=== PATIENT | female | born 1960 | race African-American/Black ===

== ENCOUNTER 2016-11-09 01:35 | Emergency (ER) | payer MEDICARE ==
[2016-07-01 16:49] VITALS: BMI 51.0
[~2016-11-09 01:35] MED LIST: CARAFATE1 G/10 ML PO; COREG25 MG PO; COZAAR100 MG PO; CYMBALTA60 MG PO; Chloraseptic Spray [ TOPICAL; ISOSORBIDE DINI30 MG PO; KLONOPIN1 MG PO; LANTUS SOL100 UNIT/1 SC; LASIX80 MG PO; NEXIUM40 MG PO; NORVASC10 MG PO; NOVOLOG100 U/M1 SQ; NYSTATIN ORAL SU5 ML PO; PERCOCET 10/3251 TA1 PO; REGLAN10 MG PO; RYTHMOL225 MG PO
== END 2016-11-09 03:50 | disposition home or self-care (01) ==
LOC: D.ER 01:35
DX: R42 Dizziness and giddiness (principal); R51 Headache; E66.09 Other obesity due to excess calories; E10.9 Type 1 diabetes mellitus without complications; Z79.4 Long term (current) use of insulin; M54.9 Dorsalgia, unspecified

== ENCOUNTER 2016-12-28 16:47 | Emergency (ER) | payer MEDICARE ==
[2016-07-01 16:49] VITALS: BMI 51.0
[2016-12-28 17:44] LABS: ALBUMIN 3.1 g/dL (3.4-5.0); ALKALINE PHOSPHATASE 116 U/L (46-116); ALT (SGPT) 22 U/L (10-68); BILIRUBIN - TOTAL 0.24 mg/dL (0.2-1.3); CALC OSMOLALITY 286 mosm/kg (275-300); CALCIUM 8.7 mg/dL (8.5-10.1); CARBON DIOXIDE 33.5 mmol/L (21.0-32.0); CHLORIDE - SERUM 105 mmol/L (98-107); CREATININE - SERUM 0.7 mg/dL (0.6-1.3); GLUCOSE 176 mg/dL (74-106); POTASSIUM - SERUM 3.4 mmol/L (3.5-5.1); PROTEIN - SERUM 7.1 g/dL (6.4-8.2); SODIUM 143 mmol/L (136-145); UREA NITROGEN 8 mg/dL (7-18); eGFR NON AFRICAN AMERICAN > 90 mL/min (90-120)
[2016-12-28 18:33] LABS: MAGNESIUM - SERUM 1.9 mg/dL (1.8-2.4); THYROID STIMULATING HORMONE 0.65 uIU/mL (0.36-3.74)
== END 2016-12-28 19:01 | disposition home or self-care (01) ==
LOC: D.ER 16:47
PROVIDERS: Emergency Medicine
DX: R60.9 Edema, unspecified (principal); I10 Essential (primary) hypertension; F17.200 Nicotine dependence, unspecified, uncomplicated; E11.9 Type 2 diabetes mellitus without complications; Z79.4 Long term (current) use of insulin

== ENCOUNTER 2017-01-02 03:28 | Emergency (ER) | payer MEDICARE ==
[2016-07-01 16:49] VITALS: BMI 51.0
[2017-01-02 04:08] LABS: APPEARANCE HAZY (CLEAR); BILIRUBIN NEGATIVE (NEGATIVE); COLOR U (YELLOW); GLUCOSE 500 mg/dL (NEGATIVE); KETONE NEGATIVE (NEGATIVE); LEUKOCYTE ESTERASE NEGATIVE (NEGATIVE); NITRITE NEGATIVE (NEGATIVE); PROTEIN NEGATIVE (NEGATIVE); SPECIFIC GRAVITY 1.025 (1.005-1.020); UROBILINOGEN NORMAL (NORMAL)
[2017-01-02 04:36] LABS: BASOPHILS 0.3 % (0.0-2.0); EOSINOPHILS 3.8 % (0-7); HEMATOCRIT 38.7 % (36.0-48.0); HEMOGLOBIN 13.2 g/dL (12-16); IMMATURE GRANULOCYTES 0.8 % (0-5); LYMPHOCYTES 40.3 % (15-50); MCH 26.9 pg (26.0-34.0); MCHC 34.1 g/dL (31.0-37.0); MEAN PLATELET VOLUME 9.8 fL (7.4-10.4); MONOCYTES 6.4 % (2-11); NEUTROPHILS 48.4 % (40-80); PLATELET COUNT 162 10x3/uL (130-400); RDW 14.2 % (11.5-14.5); WBC 6.6 10x3/uL (4.8-10.8)
[2017-01-02 04:46] LABS: CALC OSMOLALITY 281 mosm/kg (275-300); CARBON DIOXIDE 31.6 mmol/L (21.0-32.0); CHLORIDE - SERUM 106 mmol/L (98-107); CREATININE - SERUM 0.8 mg/dL (0.6-1.3); GLUCOSE 132 mg/dL (74-106); POTASSIUM - SERUM 3.7 mmol/L (3.5-5.1); SODIUM 141 mmol/L (136-145); UREA NITROGEN 10 mg/dL (7-18); eGFR NON AFRICAN AMERICAN 78 mL/min (90-120)
== END 2017-01-02 05:22 | disposition home or self-care (01) ==
LOC: D.ER 03:28
PROVIDERS: Emergency Medicine
DX: R60.9 Edema, unspecified (principal); M54.5 Low back pain; E11.9 Type 2 diabetes mellitus without complications; Z79.4 Long term (current) use of insulin; F17.200 Nicotine dependence, unspecified, uncomplicated

== ENCOUNTER 2017-03-11 15:31 | Emergency (ER) | payer MEDICARE ==
[2016-07-01 16:49] VITALS: BMI 51.0
[2017-03-11 16:32] LABS: BASOPHILS 0.3 % (0-2); EOSINOPHILS 3.4 % (0-7); HEMATOCRIT 40.4 % (36.0-48.0); HEMOGLOBIN 14.1 g/dL (12-16); IMMATURE GRANULOCYTES 0.3 % (0-5); LYMPHOCYTES 42.5 % (15-50); MCH 28.1 pg (26.0-34.0); MCHC 34.9 g/dL (31.0-37.0); MCV 80.5 fL (80.0-100.0); MEAN PLATELET VOLUME 10.4 fL (7.4-10.4); MONOCYTES 5.8 % (2-11); NEUTROPHILS 47.7 % (40-80); PLATELET COUNT 197 10x3/uL (130-400); RBC 5.02 10x6/uL (4.00-5.40); RDW 14.2 % (11.5-14.5); WBC 7.4 10x3/uL (4.8-10.8)
[2017-03-11 17:01] LABS: COLOR YELLOW (YELLOW)
[2017-03-11 17:02] LABS: APPEARANCE CLEAR (CLEAR); BILIRUBIN NEGATIVE (NEGATIVE); GLUCOSE NEGATIVE (NEGATIVE); KETONE NEGATIVE (NEGATIVE); NITRITE NEGATIVE (NEGATIVE); PROTEIN NEGATIVE (NEGATIVE); UROBILINOGEN NORMAL (NORMAL)
[2017-03-11 17:13] LABS: BACTERIA FEW /hpf (NONE SEEN); LEUKOCYTE ESTERASE TRACE (NEGATIVE); RED CELLS - URINE OCC /hpf (0-5); WHITE CELLS - URINE 0-5 /hpf (0-5)
[2017-03-11 17:17] LABS: ALBUMIN 3.3 g/dL (3.4-5.0); ANION GAP 6.6 mmol/L (8-16); BILIRUBIN - TOTAL 0.21 mg/dL (0.2-1.3); CALCIUM 9.9 mg/dL (8.5-10.1); CARBON DIOXIDE 35.8 mmol/L (21.0-32.0); CREATININE - SERUM 0.9 mg/dL (0.6-1.3); POTASSIUM - SERUM 3.4 mmol/L (3.5-5.1); PROTEIN - SERUM 7.4 g/dL (6.4-8.2)
[2017-03-11 19:34] LABS: MAGNESIUM - SERUM 1.6 mg/dL (1.8-2.4)
[2017-03-11 20:36] LABS: HEMOGLOBIN A1C 8.3 % (4.8-6.0)
== END 2017-03-11 20:15 | disposition home or self-care (01) ==
LOC: D.ER 15:31
PROVIDERS: Emergency Medicine; Physician Assistant
DX: R07.9 Chest pain, unspecified (principal); E11.9 Type 2 diabetes mellitus without complications; Z79.4 Long term (current) use of insulin; J42 Unspecified chronic bronchitis; E83.42 Hypomagnesemia; E87.6 Hypokalemia; E66.09 Other obesity due to excess calories; F17.200 Nicotine dependence, unspecified, uncomplicated; Z95.0 Presence of cardiac pacemaker

== ENCOUNTER 2017-06-20 09:57 | Emergency (ER) | payer MEDICARE ==
[2016-07-01 16:49] VITALS: BMI 51.0
[2017-06-20 10:53] LABS: BASOPHILS 0.1 % (0-2); EOSINOPHILS 2.7 % (0-7); HEMATOCRIT 38.3 % (36.0-48.0); HEMOGLOBIN 13.2 g/dL (12-16); IMMATURE GRANULOCYTES 0.5 % (0-5); MCH 27.8 pg (26.0-34.0); MCHC 34.5 g/dL (31.0-37.0); MCV 80.6 fL (80.0-100.0); MEAN PLATELET VOLUME 9.9 fL (7.4-10.4); MONOCYTES 3.7 % (2-11); PLATELET COUNT 234 10x3/uL (130-400); RBC 4.75 10x6/uL (4.00-5.40); RDW 14.2 % (11.5-14.5); WBC 7.9 10x3/uL (4.8-10.8)
[2017-06-20 11:14] LABS: ALBUMIN 3.1 g/dL (3.4-5.0); ANION GAP 6.7 mmol/L (8-16); BILIRUBIN - TOTAL 0.27 mg/dL (0.2-1.3); CALCIUM 9.3 mg/dL (8.5-10.1); PROTEIN - SERUM 7.8 g/dL (6.4-8.2)
[2017-06-20 11:19] LABS: POTASSIUM - SERUM 2.7 mmol/L (3.5-5.1)
== END 2017-06-20 14:44 | disposition home or self-care (01) ==
LOC: D.ER 09:57
PROVIDERS: Emergency Medicine; Nurse Practitioner Family
DX: T38.3X1A Poisoning by insulin and oral hypoglycemic [antidiabetic] drugs, accidental (unintentional), initial encounter (principal); Y92.019 Unspecified place in single-family (private) house as the place of occurrence of the external cause; E11.9 Type 2 diabetes mellitus without complications; Z79.4 Long term (current) use of insulin

== ENCOUNTER 2017-09-20 12:22 | Emergency (ER) | payer MEDICARE ==
[2016-07-01 16:49] VITALS: BMI 51.0
[2017-09-20 13:02] LABS: BASOPHILS 0.1 % (0-2); EOSINOPHILS 3.5 % (0-7); HEMATOCRIT 38.2 % (36.0-48.0); HEMOGLOBIN 13.2 g/dL (12-16); IMMATURE GRANULOCYTES 0.3 % (0-5); LYMPHOCYTES 37.8 % (15-50); MCH 27.4 pg (26.0-34.0); MCHC 34.6 g/dL (31.0-37.0); MCV 79.3 fL (80.0-100.0); MEAN PLATELET VOLUME 9.8 fL (7.4-10.4); MONOCYTES 6.1 % (2-11); NEUTROPHILS 52.2 % (40-80); PLATELET COUNT 200 10x3/uL (130-400); RBC 4.82 10x6/uL (4.00-5.40); RDW 14.5 % (11.5-14.5); WBC 6.9 10x3/uL (4.8-10.8)
[2017-09-20 13:17] LABS: AMYLASE - SERUM 29 U/L (25-115); LIPASE 110 U/L (73-393)
[2017-09-20 13:19] LABS: ALBUMIN 3.1 g/dL (3.4-5.0); ALKALINE PHOSPHATASE 106 U/L (46-116); ALT (SGPT) 20 U/L (10-68); BILIRUBIN - TOTAL 0.27 mg/dL (0.2-1.3); CALC OSMOLALITY 282 mosm/kg (275-300); CALCIUM 9.2 mg/dL (8.5-10.1); CARBON DIOXIDE 30.7 mmol/L (21.0-32.0); CHLORIDE - SERUM 102 mmol/L (98-107); CREATININE - SERUM 0.8 mg/dL (0.6-1.3); GLUCOSE 148 mg/dL (74-106); POTASSIUM - SERUM 3.1 mmol/L (3.5-5.1); PROTEIN - SERUM 7.4 g/dL (6.4-8.2); SODIUM 140 mmol/L (136-145); UREA NITROGEN 14 mg/dL (7-18); eGFR NON AFRICAN AMERICAN 78 mL/min (90-120)
== END 2017-09-20 16:26 | disposition home or self-care (01) ==
LOC: D.ER 12:22
PROVIDERS: Family Medicine
DX: R10.9 Unspecified abdominal pain (principal); E87.6 Hypokalemia; E11.9 Type 2 diabetes mellitus without complications; Z79.4 Long term (current) use of insulin

== ENCOUNTER 2017-11-24 00:02 | Emergency (ER) | payer MEDICARE ==
[2016-07-01 16:49] VITALS: BMI 51.0
[2017-11-24 00:41] LABS: APPEARANCE CLEAR (CLEAR); BILIRUBIN NEGATIVE (NEGATIVE); COLOR YELLOW (YELLOW); GLUCOSE NEGATIVE (NEGATIVE); KETONE NEGATIVE (NEGATIVE); NITRITE NEGATIVE (NEGATIVE); PROTEIN NEGATIVE (NEGATIVE); RED CELLS - URINE 0-5 /hpf (0-5); SPECIFIC GRAVITY 1.015 (1.005-1.020); UROBILINOGEN NORMAL (NORMAL); WHITE CELLS - URINE 0-5 /hpf (0-5)
== END 2017-11-24 00:55 | disposition home or self-care (01) ==
LOC: D.ER 00:02
PROVIDERS: Physician Assistant Medical
DX: R10.9 Unspecified abdominal pain (principal); I10 Essential (primary) hypertension; I50.9 Heart failure, unspecified; E11.9 Type 2 diabetes mellitus without complications; Z95.0 Presence of cardiac pacemaker; F17.200 Nicotine dependence, unspecified, uncomplicated

== ENCOUNTER 2018-01-18 13:09 | Emergency (ER) | payer MEDICARE ==
[2016-07-01 16:49] VITALS: BMI 51.0
== END 2018-01-18 14:21 | disposition home or self-care (01) ==
LOC: D.ER 13:09
DX: L20.9 Atopic dermatitis, unspecified (principal); T78.40XA Allergy, unspecified, initial encounter; X58.XXXA Exposure to other specified factors, initial encounter; I50.9 Heart failure, unspecified; E11.9 Type 2 diabetes mellitus without complications; I10 Essential (primary) hypertension

== ENCOUNTER 2018-02-01 13:23 | Emergency (ER) | payer MEDICARE ==
[2016-07-01 16:49] VITALS: BMI 51.0
[2018-02-01 13:47] LABS: BASOPHILS 0.3 % (0-2); EOSINOPHILS 5.5 % (0-7); HEMATOCRIT 39.8 % (36.0-48.0); HEMOGLOBIN 14.1 g/dL (12-16); IMMATURE GRANULOCYTES 0.6 % (0-5); MCHC 35.4 g/dL (31.0-37.0); MEAN PLATELET VOLUME 9.8 fL (7.4-10.4); MONOCYTES 4.9 % (2-11); NEUTROPHILS 58.7 % (40-80); PLATELET COUNT 178 10x3/uL (130-400); RBC 5.04 10x6/uL (4.00-5.40); RDW 14.8 % (11.5-14.5); WBC 6.6 10x3/uL (4.8-10.8)
[2018-02-01 14:00] LABS: ALBUMIN 3.3 g/dL (3.4-5.0); BILIRUBIN - TOTAL 0.32 mg/dL (0.2-1.3); CALCIUM 9.5 mg/dL (8.5-10.1); CARBON DIOXIDE 30.5 mmol/L (21.0-32.0); CREATININE - SERUM 0.9 mg/dL (0.6-1.3); POTASSIUM - SERUM 3.5 mmol/L (3.5-5.1); PROTEIN - SERUM 8.1 g/dL (6.4-8.2)
[2018-02-01 14:51] LABS: APPEARANCE HAZY (CLEAR); BACTERIA MODERATE /hpf (NONE SEEN); BILIRUBIN NEGATIVE (NEGATIVE); COLOR YELLOW (YELLOW); EPITHELIAL CELLS 0-5 /hpf (0-5); GLUCOSE NEGATIVE (NEGATIVE); KETONE NEGATIVE (NEGATIVE); MUCUS <1+ /lpf (NONE SEEN); NITRITE NEGATIVE (NEGATIVE); PROTEIN NEGATIVE (NEGATIVE); RED CELLS - URINE 0-5 /hpf (0-5); SPECIFIC GRAVITY 1.015 (1.005-1.020); UROBILINOGEN NORMAL (NORMAL)
== END 2018-02-01 15:50 | disposition home or self-care (01) ==
LOC: D.ER 13:23
PROVIDERS: Family Medicine
DX: R10.9 Unspecified abdominal pain (principal); N39.0 Urinary tract infection, site not specified; I50.9 Heart failure, unspecified; E11.9 Type 2 diabetes mellitus without complications; I10 Essential (primary) hypertension

== ENCOUNTER 2018-02-09 12:30 | Emergency (ER) | payer MEDICARE ==
[2016-07-01 16:49] VITALS: BMI 51.0
[2018-02-09 13:33] LABS: BASOPHILS 0.3 % (0-2); EOSINOPHILS 6.3 % (0-7); HEMATOCRIT 38.9 % (36.0-48.0); HEMOGLOBIN 13.7 g/dL (12-16); IMMATURE GRANULOCYTES 0.5 % (0-5); LYMPHOCYTES 35.8 % (15-50); MCH 27.8 pg (26.0-34.0); MCHC 35.2 g/dL (31.0-37.0); MCV 79.1 fL (80.0-100.0); MONOCYTES 5.5 % (2-11); NEUTROPHILS 51.6 % (40-80); PLATELET COUNT 197 10x3/uL (130-400); RBC 4.92 10x6/uL (4.00-5.40); RDW 14.6 % (11.5-14.5)
[2018-02-09 13:38] LABS: APPEARANCE CLEAR (CLEAR); BILIRUBIN NEGATIVE (NEGATIVE); COLOR YELLOW (YELLOW); GLUCOSE NEGATIVE (NEGATIVE); KETONE NEGATIVE (NEGATIVE); NITRITE NEGATIVE (NEGATIVE); PROTEIN NEGATIVE (NEGATIVE); UROBILINOGEN NORMAL (NORMAL)
[2018-02-09 13:39] LABS: BACTERIA MODERATE /hpf (NONE SEEN); EPITHELIAL CELLS 0-5 /hpf (0-5); RED CELLS - URINE 0-5 /hpf (0-5); WHITE CELLS - URINE 0-5 /hpf (0-5)
[2018-02-09 14:04] LABS: AMYLASE - SERUM 31 U/L (25-115); LIPASE 85 U/L (73-393)
== END 2018-02-09 15:00 | disposition home or self-care (01) ==
LOC: D.ER 12:30
PROVIDERS: Family Medicine; Nurse Practitioner Family
DX: N39.0 Urinary tract infection, site not specified (principal); I50.9 Heart failure, unspecified; E11.9 Type 2 diabetes mellitus without complications; Z95.0 Presence of cardiac pacemaker

== ENCOUNTER 2018-03-22 11:07 | Emergency (ER) | payer MEDICARE ==
[2016-07-01 16:49] VITALS: BMI 51.0
[2018-03-22 11:53] LABS: APPEARANCE CLEAR (CLEAR); BILIRUBIN NEGATIVE (NEGATIVE); COLOR YELLOW (YELLOW); GLUCOSE NEGATIVE (NEGATIVE); KETONE NEGATIVE (NEGATIVE); NITRITE NEGATIVE (NEGATIVE); PROTEIN NEGATIVE (NEGATIVE); UROBILINOGEN NORMAL (NORMAL)
[2018-03-22 11:54] LABS: BACTERIA FEW /hpf (NONE SEEN); EPITHELIAL CELLS 0-5 /hpf (0-5); RED CELLS - URINE OCC /hpf (0-5); WHITE CELLS - URINE OCC /hpf (0-5)
[2018-03-22 12:14] LABS: BASOPHILS 0.1 % (0-2); HEMOGLOBIN 13.1 g/dL (12-16); IMMATURE GRANULOCYTES 0.6 % (0-5); LYMPHOCYTES 30.9 % (15-50); MCH 28.1 pg (26.0-34.0); MCHC 35.4 g/dL (31.0-37.0); MCV 79.2 fL (80.0-100.0); MEAN PLATELET VOLUME 10.2 fL (7.4-10.4); MONOCYTES 5.4 % (2-11); PLATELET COUNT 180 10x3/uL (130-400); RBC 4.67 10x6/uL (4.00-5.40); RDW 14.9 % (11.5-14.5); WBC 6.8 10x3/uL (4.8-10.8)
[2018-03-22 12:29] LABS: ALKALINE PHOSPHATASE 110 U/L (46-116); ALT (SGPT) 25 U/L (10-68); BILIRUBIN - TOTAL 0.29 mg/dL (0.2-1.3); CALC OSMOLALITY 283 mosm/kg (275-300); CALCIUM 9.2 mg/dL (8.5-10.1); CARBON DIOXIDE 31.3 mmol/L (21.0-32.0); CHLORIDE - SERUM 102 mmol/L (98-107); CREATININE - SERUM 0.8 mg/dL (0.6-1.3); GLUCOSE 149 mg/dL (74-106); POTASSIUM - SERUM 3.4 mmol/L (3.5-5.1); PROTEIN - SERUM 7.5 g/dL (6.4-8.2); SODIUM 140 mmol/L (136-145); UREA NITROGEN 18 mg/dL (7-18); eGFR NON AFRICAN AMERICAN 78 mL/min (90-120)
== END 2018-03-22 13:51 | disposition home or self-care (01) ==
LOC: D.ER 11:07
PROVIDERS: Family Medicine
DX: N39.0 Urinary tract infection, site not specified (principal); R10.9 Unspecified abdominal pain; R10.84 Generalized abdominal pain; R11.2 Nausea with vomiting, unspecified; I50.9 Heart failure, unspecified; E11.9 Type 2 diabetes mellitus without complications; Z95.0 Presence of cardiac pacemaker

== ENCOUNTER 2018-06-25 04:55 | Emergency (ER) | payer MEDICARE ==
[~2018-06-25] VITALS: Ht 171.4 cm; Wt 154.6 kg
[2018-06-25 05:03] VITALS: Ht 171.4 cm; Wt 154.6 kg
[2018-06-25 05:52] LABS: BASOPHILS 0 % (0-2); EOSINOPHILS 0 % (0-7); HEMATOCRIT 37.5 % (36.0-48.0); HEMOGLOBIN 13.1 g/dL (12-16); IMMATURE GRANULOCYTES 0.8 % (0-5); LYMPHOCYTES 9.1 % (15-50); MCH 27.2 pg (26.0-34.0); MCHC 34.9 g/dL (31.0-37.0); MCV 77.8 fL (80.0-100.0); MEAN PLATELET VOLUME 10.2 fL (7.4-10.4); MONOCYTES 2.5 % (2-11); NEUTROPHILS 87.6 % (40-80); PLATELET COUNT 198 10x3/uL (130-400); RBC 4.82 10x6/uL (4.00-5.40); RDW 14.7 % (11.5-14.5); WBC 8.3 10x3/uL (4.8-10.8)
[2018-06-25 06:06] LABS: KETONE - SERUM NEGATIVE (NEGATIVE)
[2018-06-25 06:11] LABS: ALBUMIN 2.9 g/dL (3.4-5.0); ALKALINE PHOSPHATASE 134 U/L (46-116); ALT (SGPT) 19 U/L (10-68); BILIRUBIN - TOTAL 0.19 mg/dL (0.2-1.3); CALC OSMOLALITY 289 mosm/kg (275-300); CALCIUM 8.7 mg/dL (8.5-10.1); CARBON DIOXIDE 30.4 mmol/L (21.0-32.0); CHLORIDE - SERUM 98 mmol/L (98-107); CREATININE - SERUM 1.4 mg/dL (0.6-1.3); POTASSIUM - SERUM 3.9 mmol/L (3.5-5.1); PROTEIN - SERUM 7.4 g/dL (6.4-8.2); SODIUM 134 mmol/L (136-145); UREA NITROGEN 21 mg/dL (7-18); eGFR NON AFRICAN AMERICAN 41 mL/min (90-120)
[2018-06-25 06:14] LABS: GLUCOSE 443 mg/dL (74-106)
[2018-06-25 07:02] LABS: APPEARANCE CLEAR (CLEAR); BACTERIA FEW /hpf (NONE SEEN); BILIRUBIN NEGATIVE (NEGATIVE); COLOR YELLOW (YELLOW); EPITHELIAL CELLS OCC /hpf (0-5); GLUCOSE 1000 mg/dL (NEGATIVE); KETONE NEGATIVE (NEGATIVE); NITRITE NEGATIVE (NEGATIVE); PROTEIN NEGATIVE (NEGATIVE); RED CELLS - URINE OCC /hpf (0-5); SPECIFIC GRAVITY 1.015 (1.005-1.020); UROBILINOGEN NORMAL (NORMAL); WHITE CELLS - URINE RARE /hpf (0-5)
[2018-06-25 07:58] VITALS: BP 137/56
== END 2018-06-25 07:58 | disposition home or self-care (01) ==
LOC: D.ER 04:55
PROVIDERS: Family Medicine
DX: E11.65 Type 2 diabetes mellitus with hyperglycemia (principal); Z79.4 Long term (current) use of insulin; R51 Headache; H53.8 Other visual disturbances; I10 Essential (primary) hypertension; Z95.0 Presence of cardiac pacemaker; Z85.43 Personal history of malignant neoplasm of ovary; Z85.41 Personal history of malignant neoplasm of cervix uteri; F17.200 Nicotine dependence, unspecified, uncomplicated

== ENCOUNTER 2018-10-04 11:24 | Emergency (ER) | payer MEDICARE ==
[2018-10-04 12:02] LABS: BASOPHILS 0.4 % (0-2); EOSINOPHILS 3.1 % (0-7); HEMATOCRIT 38.3 % (36.0-48.0); HEMOGLOBIN 13.6 g/dL (12-16); IMMATURE GRANULOCYTES 0.3 % (0-5); LYMPHOCYTES 32.4 % (15-50); MCH 28.2 pg (26.0-34.0); MCHC 35.5 g/dL (31.0-37.0); MCV 79.3 fL (80.0-100.0); MEAN PLATELET VOLUME 9.8 fL (7.4-10.4); MONOCYTES 5.5 % (2-11); NEUTROPHILS 58.3 % (40-80); PLATELET COUNT 190 10x3/uL (130-400); RBC 4.83 10x6/uL (4.00-5.40); RDW 14.3 % (11.5-14.5); WBC 7.3 10x3/uL (4.8-10.8)
[2018-10-04 12:20] LABS: KETONE - SERUM NEGATIVE (NEGATIVE)
[2018-10-04 12:44] LABS: ALBUMIN 3.3 g/dL (3.4-5.0); ALKALINE PHOSPHATASE 111 U/L (46-116); ALT (SGPT) 20 U/L (10-68); BILIRUBIN - TOTAL 0.28 mg/dL (0.2-1.3); CALCIUM 9.4 mg/dL (8.5-10.1); CARBON DIOXIDE 31.3 mmol/L (21.0-32.0); CHLORIDE - SERUM 100 mmol/L (98-107); CREATININE - SERUM 0.8 mg/dL (0.6-1.3); POTASSIUM - SERUM 3.3 mmol/L (3.5-5.1); PROTEIN - SERUM 7.4 g/dL (6.4-8.2); SODIUM 141 mmol/L (136-145); UREA NITROGEN 16 mg/dL (7-18); eGFR NON AFRICAN AMERICAN 78 mL/min (90-120)
[2018-10-04 12:51] LABS: LIPASE 95 U/L (73-393); PRO BNP 41 pg/mL (0-125)
[2018-10-04 12:56] LABS: CALC OSMOLALITY 282 mosm/kg (275-300); GLUCOSE 113 mg/dL (74-106); TROPONIN-I < 0.017 ng/mL (0.000-0.060)
[2018-10-04 13:10] LABS: APPEARANCE HAZY (CLEAR); BILIRUBIN NEGATIVE (NEGATIVE); COLOR YELLOW (YELLOW); GLUCOSE NEGATIVE (NEGATIVE); KETONE NEGATIVE (NEGATIVE); NITRITE NEGATIVE (NEGATIVE); PROTEIN NEGATIVE (NEGATIVE); UROBILINOGEN NORMAL (NORMAL)
[2018-10-04 13:11] LABS: BACTERIA MANY /hpf (NONE SEEN); EPITHELIAL CELLS 0-5 /hpf (0-5); RED CELLS - URINE 0-5 /hpf (0-5); WHITE CELLS - URINE 0-5 /hpf (0-5)
== END 2018-10-04 13:55 | disposition home or self-care (01) ==
LOC: D.ER 11:24
PROVIDERS: Family Medicine
DX: R10.9 Unspecified abdominal pain (principal); E11.9 Type 2 diabetes mellitus without complications; I11.0 Hypertensive heart disease with heart failure; I50.9 Heart failure, unspecified; Z95.0 Presence of cardiac pacemaker; K21.9 Gastro-esophageal reflux disease without esophagitis; Z85.41 Personal history of malignant neoplasm of cervix uteri; F17.200 Nicotine dependence, unspecified, uncomplicated

== ENCOUNTER 2018-11-11 22:05 | Emergency (ER) | payer MEDICARE ==
[~2018-11-11] VITALS: Ht 171.4 cm; Wt 152.3 kg
[2018-11-11 22:20] VITALS: Ht 171.4 cm; Wt 152.3 kg
[2018-11-11 23:04] LABS: BASOPHILS 0.1 % (0-2); EOSINOPHILS 3.1 % (0-7); HEMATOCRIT 35.6 % (36.0-48.0); HEMOGLOBIN 12.4 g/dL (12-16); IMMATURE GRANULOCYTES 0.1 % (0-5); LYMPHOCYTES 33.4 % (15-50); MCH 27.9 pg (26.0-34.0); MCHC 34.8 g/dL (31.0-37.0); NEUTROPHILS 57.3 % (40-80); PLATELET COUNT 168 10x3/uL (130-400); RBC 4.45 10x6/uL (4.00-5.40); RDW 14.4 % (11.5-14.5); WBC 6.9 10x3/uL (4.8-10.8)
[2018-11-11 23:17] LABS: ALBUMIN 2.8 g/dL (3.4-5.0); ALKALINE PHOSPHATASE 103 U/L (46-116); ALT (SGPT) 25 U/L (10-68); CALC OSMOLALITY 292 mosm/kg (275-300); CALCIUM 8.4 mg/dL (8.5-10.1); CARBON DIOXIDE 29.8 mmol/L (21.0-32.0); CHLORIDE - SERUM 101 mmol/L (98-107); CREATININE - SERUM 1.1 mg/dL (0.6-1.3); POTASSIUM - SERUM 3.2 mmol/L (3.5-5.1); PROTEIN - SERUM 6.9 g/dL (6.4-8.2); SODIUM 140 mmol/L (136-145); UREA NITROGEN 15 mg/dL (7-18); eGFR NON AFRICAN AMERICAN 54 mL/min (90-120)
[2018-11-11 23:22] LABS: GLUCOSE 333 mg/dL (74-106)
[2018-11-11 23:27] LABS: CREATINE KINASE 73 UL (21-215); MAGNESIUM - SERUM 1.4 mg/dL (1.8-2.4); PROTIME 12.7 SECONDS (11.6-15.0)
[2018-11-11 23:29] LABS: TROPONIN-I < 0.017 ng/mL (0.000-0.060)
[2018-11-12 00:54] VITALS: BP 144/75
== END 2018-11-12 01:01 | disposition home or self-care (01) ==
LOC: D.ER 22:05
PROVIDERS: Family Medicine
DX: S20.211A Contusion of right front wall of thorax, initial encounter (principal); Y04.2XXA Assault by strike against or bumped into by another person, initial encounter; Y93.89 Activity, other specified; Y92.89 Other specified places as the place of occurrence of the external cause; E87.6 Hypokalemia; Z95.0 Presence of cardiac pacemaker; E11.9 Type 2 diabetes mellitus without complications; Z79.4 Long term (current) use of insulin; I11.0 Hypertensive heart disease with heart failure; I50.9 Heart failure, unspecified; J44.9 Chronic obstructive pulmonary disease, unspecified; F17.200 Nicotine dependence, unspecified, uncomplicated

== ENCOUNTER 2019-03-28 00:08 | Emergency (ER) | payer MEDICARE ==
[2019-03-28 00:15] VITALS: BMI 51.8
[2019-03-28 00:41] LABS: BASOPHILS 0.2 % (0-2); EOSINOPHILS 5.3 % (0-7); HEMATOCRIT 37.8 % (36.0-48.0); HEMOGLOBIN 13.2 g/dL (12-16); IMMATURE GRANULOCYTES 0.3 % (0-5); LYMPHOCYTES 34.3 % (15-50); MCH 27.6 pg (26.0-34.0); MCHC 34.9 g/dL (31.0-37.0); MCV 78.9 fL (80.0-100.0); MEAN PLATELET VOLUME 10.1 fL (7.4-10.4); MONOCYTES 6.3 % (2-11); NEUTROPHILS 53.6 % (40-80); RBC 4.79 10x6/uL (4.00-5.40); RDW 14.2 % (11.5-14.5); WBC 9.7 10x3/uL (4.8-10.8)
[2019-03-28 00:44] LABS: PLATELET COUNT 210 10x3/uL (130-400)
[2019-03-28 00:45] LABS: APTT 26.9 SECONDS (22.8-39.4); PROTIME 12.7 SECONDS (11.6-15.0)
[2019-03-28 01:00] LABS: ALBUMIN 3.1 g/dL (3.4-5.0); ALKALINE PHOSPHATASE 115 U/L (46-116); ALT (SGPT) 23 U/L (10-68); BILIRUBIN - TOTAL 0.24 mg/dL (0.2-1.3); CALCIUM 9.4 mg/dL (8.5-10.1); CARBON DIOXIDE 32.9 mmol/L (21.0-32.0); CHLORIDE - SERUM 100 mmol/L (98-107); CKMB 0.4 U/L (0.0-3.6); CREATINE KINASE 116 UL (21-215); CREATININE - SERUM 0.9 mg/dL (0.6-1.3); MAGNESIUM - SERUM 1.4 mg/dL (1.8-2.4); PROTEIN - SERUM 7.7 g/dL (6.4-8.2); SODIUM 139 mmol/L (136-145); UREA NITROGEN 25 mg/dL (7-18); eGFR NON AFRICAN AMERICAN 68 mL/min (90-120)
[2019-03-28 01:01] LABS: CALC OSMOLALITY 285 mosm/kg (275-300); GLUCOSE 164 mg/dL (74-106); POTASSIUM - SERUM 2.9 mmol/L (3.5-5.1); TROPONIN-I < 0.017 ng/mL (0.000-0.060)
[2019-03-28 03:00] VITALS: BP 107/50
== END 2019-03-28 03:00 | disposition home or self-care (01) ==
LOC: D.ER 00:08
PROVIDERS: Family Medicine
DX: R00.2 Palpitations (principal); F41.9 Anxiety disorder, unspecified

== ENCOUNTER 2019-06-28 17:55 | Emergency (ER) | payer MEDICARE ==
[~2019-06-28] VITALS: Ht 171.4 cm; Wt 155.0 kg
[2019-06-28 18:04] VITALS: Ht 171.4 cm; Wt 155.0 kg
[2019-06-28 18:32] LABS: APPEARANCE CLEAR (CLEAR); BILIRUBIN NEGATIVE (NEGATIVE); COLOR YELLOW (YELLOW); GLUCOSE NEGATIVE (NEGATIVE); KETONE NEGATIVE (NEGATIVE); NITRITE NEGATIVE (NEGATIVE); PROTEIN NEGATIVE (NEGATIVE); UROBILINOGEN NORMAL (NORMAL)
[2019-06-28] MEDS ORDERED: ZPAK PO (19:06)
[2019-06-28 19:13] VITALS: BP 130/72
== END 2019-06-28 19:14 | disposition home or self-care (01) ==
LOC: D.ER 17:55
PROVIDERS: Family Medicine
DX: J02.9 Acute pharyngitis, unspecified (principal)

== ENCOUNTER 2019-08-29 17:34 | Emergency (ER) | payer MEDICARE ==
[~2019-08-29] VITALS: Ht 171.4 cm; Wt 160.5 kg
[~2019-08-29 17:34] MED LIST changes: +ZPAK PO
[2019-08-29 17:41] VITALS: Ht 171.4 cm; Wt 160.5 kg
[2019-08-29 18:05] LABS: APPEARANCE CLEAR (CLEAR); BILIRUBIN NEGATIVE (NEGATIVE); COLOR STRAW (YELLOW); GLUCOSE NEGATIVE (NEGATIVE); KETONE NEGATIVE (NEGATIVE); NITRITE NEGATIVE (NEGATIVE); PROTEIN NEGATIVE (NEGATIVE); SPECIFIC GRAVITY 1.015 (1.005-1.020); UROBILINOGEN NORMAL (NORMAL)
[2019-08-29 18:26] LABS: BASOPHILS 0.4 % (0-2); EOSINOPHILS 4.6 % (0-7); HEMATOCRIT 41.2 % (36.0-48.0); HEMOGLOBIN 13.9 g/dL (12-16); IMMATURE GRANULOCYTES 0.6 % (0-5); LYMPHOCYTES 27.3 % (15-50); MCH 28.3 pg (26.0-34.0); MCHC 33.7 g/dL (31.0-37.0); MCV 83.9 fL (80.0-100.0); MEAN PLATELET VOLUME 10.3 fL (7.4-10.4); MONOCYTES 7.3 % (2-11); NEUTROPHILS 59.8 % (40-80); PLATELET COUNT 202 10x3/uL (130-400); RBC 4.91 10x6/uL (4.00-5.40); RDW 14.5 % (11.5-14.5); WBC 7.9 10x3/uL (4.8-10.8)
[2019-08-29 18:36] LABS: CALC OSMOLALITY 292 mosm/kg (275-300); CARBON DIOXIDE 31.6 mmol/L (21.0-32.0); CHLORIDE - SERUM 102 mmol/L (98-107); CREATININE - SERUM 1.2 mg/dL (0.6-1.3); GLUCOSE 231 mg/dL (74-106); POTASSIUM - SERUM 3.5 mmol/L (3.5-5.1); SODIUM 142 mmol/L (136-145); UREA NITROGEN 20 mg/dL (7-18); eGFR NON AFRICAN AMERICAN 48 mL/min (90-120)
[2019-08-29 18:45] LABS: ALBUMIN 3.2 g/dL (3.4-5.0); ALKALINE PHOSPHATASE 110 U/L (46-116); ALT (SGPT) 28 U/L (10-68); AMYLASE - SERUM 34 U/L (25-115); BILIRUBIN - TOTAL 0.29 mg/dL (0.2-1.3); LIPASE 106 U/L (73-393); PROTEIN - SERUM 7.6 g/dL (6.4-8.2); TROPONIN-I < 0.017 ng/mL (0.000-0.060)
[2019-08-29 20:05] VITALS: BP 144/72
== END 2019-08-29 20:06 | disposition home or self-care (01) ==
LOC: D.ER 17:34
PROVIDERS: Family Medicine
DX: R10.9 Unspecified abdominal pain (principal); E11.9 Type 2 diabetes mellitus without complications; I11.0 Hypertensive heart disease with heart failure; I50.9 Heart failure, unspecified; J44.9 Chronic obstructive pulmonary disease, unspecified

== ENCOUNTER 2019-10-21 02:56 | Emergency (ER) | payer MEDICARE ==
[~2019-10-21] VITALS: Ht 171.4 cm; Wt 155.0 kg
[2019-10-21 02:59] VITALS: Ht 171.4 cm; Wt 155.0 kg
[2019-10-21] MEDS ORDERED: AMOXICILLIN500 M1 PO (03:00)
[2019-10-21 03:53] VITALS: BP 128/84
== END 2019-10-21 03:54 | disposition home or self-care (01) ==
LOC: D.ER 02:56
DX: L29.9 Pruritus, unspecified (principal); T39.315A Adverse effect of propionic acid derivatives, initial encounter; E11.9 Type 2 diabetes mellitus without complications; Z79.4 Long term (current) use of insulin; I10 Essential (primary) hypertension; Z95.0 Presence of cardiac pacemaker; J44.9 Chronic obstructive pulmonary disease, unspecified; Z72.0 Tobacco use; I50.9 Heart failure, unspecified

== ENCOUNTER 2019-12-18 11:19 | Observation (INO) | payer MEDICARE ==
[~2019-12-18] VITALS: Ht 171.4 cm; Wt 155.0 kg
[~2019-12-18 11:19] MED LIST changes: +AMOXICILLIN500 M1 PO; +NORCO-7.51 TAB PO; +ZOFRAN ODT4 MG/UDTAB PO
[2019-12-18 12:45] LABS: BASOPHILS 0.4 % (0-2); EOSINOPHILS 4.6 % (0-7); HEMATOCRIT 38.7 % (36.0-48.0); HEMOGLOBIN 13.4 g/dL (12-16); IMMATURE GRANULOCYTES 0.4 % (0-5); LYMPHOCYTES 37.3 % (15-50); MCH 27.9 pg (26.0-34.0); MCHC 34.6 g/dL (31.0-37.0); MCV 80.6 fL (80.0-100.0); MEAN PLATELET VOLUME 9.8 fL (7.4-10.4); MONOCYTES 4.7 % (2-11); NEUTROPHILS 52.6 % (40-80); PLATELET COUNT 195 10x3/uL (130-400); RDW 14.2 % (11.5-14.5); WBC 7.5 10x3/uL (4.8-10.8)
[2019-12-18 12:49] LABS: APPEARANCE CLEAR (CLEAR); BILIRUBIN NEGATIVE (NEGATIVE); COLOR YELLOW (YELLOW); GLUCOSE NEGATIVE (NEGATIVE); KETONE NEGATIVE (NEGATIVE); NITRITE NEGATIVE (NEGATIVE); PROTEIN NEGATIVE (NEGATIVE); UROBILINOGEN NORMAL (NORMAL)
[2019-12-18 13:09] LABS: ANION GAP 10.1 mmol/L (8-16); CALCIUM 9.4 mg/dL (8.5-10.1); CARBON DIOXIDE 29.1 mmol/L (21.0-32.0); POTASSIUM - SERUM 3.2 mmol/L (3.5-5.1)
[2019-12-18 13:15] LABS: ALBUMIN 2.9 g/dL (3.4-5.0); BILIRUBIN - TOTAL 0.33 mg/dL (0.2-1.3); MAGNESIUM - SERUM 1.5 mg/dL (1.8-2.4); PROTEIN - SERUM 7.2 g/dL (6.4-8.2)
[2019-12-18 13:49] LABS: CKMB 0.1 U/L (0.0-3.6); CREATINE KINASE 130 UL (21-215); TROPONIN-I < 0.017 ng/mL (0.000-0.060)
--- NOTE | 2019-12-18 13:56 | NUR ---
PATIENT IN CT VIA STRETCHER
[2019-12-18 15:01] VITALS: BP 121/57
--- NOTE | 2019-12-18 19:11 | NUR ---
REPORT CALLED TO NURSE MED SURG.
[2019-12-18 23:15] VITALS: BP 152/61; BMI 52.7
[2019-12-19 00:30] VITALS: BP 137/45
[2019-12-19 05:00] VITALS: BP 135/55
[2019-12-19 06:21] LABS: BASOPHILS 0.3 % (0-2); EOSINOPHILS 4.6 % (0-7); HEMATOCRIT 38.9 % (36.0-48.0); HEMOGLOBIN 13.1 g/dL (12-16); IMMATURE GRANULOCYTES 0.3 % (0-5); LYMPHOCYTES 35.4 % (15-50); MCH 27.2 pg (26.0-34.0); MCHC 33.7 g/dL (31.0-37.0); MCV 80.7 fL (80.0-100.0); MEAN PLATELET VOLUME 10.4 fL (7.4-10.4); MONOCYTES 5.4 % (2-11); PLATELET COUNT 208 10x3/uL (130-400); RBC 4.82 10x6/uL (4.00-5.40); RDW 14.3 % (11.5-14.5); WBC 6.5 10x3/uL (4.8-10.8)
[2019-12-19 06:57] LABS: ALBUMIN 3.2 g/dL (3.4-5.0); BILIRUBIN - TOTAL 0.19 mg/dL (0.2-1.3); CALCIUM 8.8 mg/dL (8.5-10.1); CARBON DIOXIDE 29.4 mmol/L (21.0-32.0); PROTEIN - SERUM 7.3 g/dL (6.4-8.2)
[2019-12-19 06:58] LABS: ANION GAP 11.3 mmol/L (8-16); POTASSIUM - SERUM 3.7 mmol/L (3.5-5.1)
[2019-12-19 08:37] VITALS: BP 127/50
--- NOTE | 2019-12-19 10:19 | NUR ---
RESTING IN BED, NO DISTRESS NOTED, UP WALKING IN THE HALLS, IV INFUSING, MEDICATED FOR NAUSEA, CONT TO MONITOR SUGARS
[2019-12-19 13:13] VITALS: BP 129/76
[2019-12-19 16:18] VITALS: BP 122/60
[2019-12-19 17:21] VITALS: Ht 171.4 cm; Wt 155.0 kg
--- NOTE | 2019-12-19 18:45 | NUR ---
D/C IV, TIP INTACT, PJ WELL, REVIEWED DC ORDERS, VOICED NO CONCERNS, TAKEN FROM UNIT PER W/C
--- NOTE | 2019-12-21 11:54 | EC ---
PATIENT:AMAN BELL DATE OF SERVICE: 12/18/19 SEX: F MEDICAL RECORD: [id number] DATE OF : 56 LOCATION:[id number] AGE OF PATIENT: 59 ADMISSION DATE: 12/18/19 REFERRING PHYSICIAN: INTERPRETING PHYSICIAN: JIMENEZ SMITH MD ECHOCARDIOGRAM REPORT ECHO CHARGES 4 ECHO COMPLETE Date: 12/19/19 CLINICAL DIAGNOSIS: SYNCOPE AND COLLAPSE ECHOCARDIOGRAPHIC MEASUREMENTS (adult normal given) AC root (d.<3.7cm) 2.8 cm LV Septum d (<1.2 cm> 1.5 cm Valve Excursion 1.6 cm LV Septum (systole) 2.1 cm Left Atria (s.<4.0cm> 4.5 cm LVPW d(<1.2cm) 1.4 cm RV (d.<2.3cm) 4.9 cm LVPW (sytole) 2.2 cm LV diastole(<5.6CM) 4.3 cm MV E-F(>70mm/sec) cm LV systole 2.3 cm LVOT Diameter 2.3 cm MV exc.(>10mm) cm Est.ejection fraction (50-75%) % DOPPLER: LVIT cm/sec A 79.0 cm/sec E 95.0 cm/sec LA cm/sec RVSP 37.1 mmHg LVOT 121 cm/sec AOP1/2T m/s Asc. Ao 176 cm/sec RVOT 55.0 cm/sec RA cm/sec PA 105 cm/sec AV Gradient Peak 12.4 mmHg AV Mean 5.4 mmHg AV Area 2.3 cm MV Gradient Peak 4.2 mmHg MV Mean 1.7 mmHg MV Area cm COMMENTS: Civil Engineering Project Manager: 1 CHRISTINE BONDOE [employer] Certified Powerplant Mechanic: 1 Dr. Smith TAPE# PACS Pericardial Effusion N DATE OF SERVICE: Echocardiogram FINDINGS: 1. Left ventricular chamber size is within normal limits. Left ventricular systolic function is normal at 55%. 2. Left atrium is enlarged at 4.5 cm. Right atrium and right ventricle chamber sizes are as well mildly dilated. 3. Valvular structures have normal structure and motion. ECHOCARDIOGRAM REPORT [id number] AMAN BELL 4. Doppler interrogation reveals mild tricuspid regurgitation, no other valvular insufficiency or stenosis. 5. No evidence of pericardial effusion or left ventricular thrombus. TRANSINT:[id number] Voice Confirmation ID: [id number] DOCUMENT ID: [id number] JIMENEZ SMITH MD at 1154 CC: [id number] DICTATION DATE: 12/19/191738 DIRECTOR DIGITAL SALES: 12/19/192139 DIS IN 12/19/19 [place] [id number] [place] [id number]
== END 2019-12-19 18:45 | disposition home or self-care (01) ==
LOC: D.ER 11:19 → D.MS 15:37 → OBSVTIME 12-19 → D.MS 12-19 18:45
PROVIDERS: Family Medicine; ADMIT Family Medicine; ATTEND Family Medicine
DX: H81.10 Benign paroxysmal vertigo, unspecified ear (principal); T50.905A Adverse effect of unspecified drugs, medicaments and biological substances, initial encounter; F17.200 Nicotine dependence, unspecified, uncomplicated

== ENCOUNTER 2020-01-23 16:04 | Emergency (ER) | payer MEDICARE ==
[~2020-01-23] VITALS: Ht 171.4 cm; Wt 136.4 kg
[2020-01-23 16:13] VITALS: Ht 171.4 cm; Wt 136.4 kg
[2020-01-23 16:49] LABS: BASOPHILS 0.1 % (0-2); EOSINOPHILS 3.3 % (0-7); HEMATOCRIT 39.1 % (36.0-48.0); HEMOGLOBIN 13.2 g/dL (12-16); IMMATURE GRANULOCYTES 0.3 % (0-5); LYMPHOCYTES 33.9 % (15-50); MCH 27.6 pg (26.0-34.0); MCHC 33.8 g/dL (31.0-37.0); MCV 81.8 fL (80.0-100.0); MEAN PLATELET VOLUME 10.1 fL (7.4-10.4); MONOCYTES 5.4 % (2-11); PLATELET COUNT 207 10x3/uL (130-400); RBC 4.78 10x6/uL (4.00-5.40); RDW 14.1 % (11.5-14.5); WBC 6.9 10x3/uL (4.8-10.8)
[2020-01-23 16:56] LABS: CALC OSMOLALITY 283 mosm/kg (275-300); CALCIUM 9.6 mg/dL (8.5-10.1); CARBON DIOXIDE 34.3 mmol/L (21.0-32.0); CHLORIDE - SERUM 104 mmol/L (98-107); CREATININE - SERUM 1.1 mg/dL (0.6-1.3); POTASSIUM - SERUM 3.3 mmol/L (3.5-5.1); SODIUM 142 mmol/L (136-145); UREA NITROGEN 12 mg/dL (7-18); eGFR NON AFRICAN AMERICAN 53 mL/min (90-120)
[2020-01-23 16:57] LABS: GLUCOSE 115 mg/dL (74-106)
[2020-01-23 17:13] LABS: ALBUMIN 3.2 g/dL (3.4-5.0); ALKALINE PHOSPHATASE 115 U/L (30-120); ALT (SGPT) 24 U/L (10-68); BILIRUBIN - TOTAL 0.34 mg/dL (0.2-1.3); C-REACTIVE PROTEIN 2.5 mg/dL (0.0-0.9); CREATINE KINASE 70 UL (21-215); FERRITIN 54 ng/mL (3-244); PROTEIN - SERUM 7.5 g/dL (6.4-8.2)
[2020-01-23 17:14] LABS: TROPONIN-I < 0.017 ng/mL (0.000-0.060)
[2020-01-23] MEDS ORDERED: TAMIFLU75 MG PO (17:44)
[2020-01-23] MEDS ORDERED: TESSALON PERLE100 MG PO (17:44)
[2020-01-23 18:44] VITALS: BP 112/53
== END 2020-01-23 18:45 | disposition home or self-care (01) ==
LOC: D.ER 16:04
PROVIDERS: Family Medicine
DX: J11.1 Influenza due to unidentified influenza virus with other respiratory manifestations (principal); J44.9 Chronic obstructive pulmonary disease, unspecified; E11.9 Type 2 diabetes mellitus without complications; I10 Essential (primary) hypertension; Z95.0 Presence of cardiac pacemaker; K21.9 Gastro-esophageal reflux disease without esophagitis; Z79.4 Long term (current) use of insulin; R07.89 Other chest pain

== ENCOUNTER 2020-05-05 00:56 | Emergency (ER) | payer MEDICARE ==
[~2020-05-05] VITALS: Ht 171.4 cm; Wt 156.8 kg
[~2020-05-05 00:56] MED LIST changes: +TAMIFLU75 MG PO; +TESSALON PERLE100 MG PO
[2020-05-05 01:11] VITALS: Ht 171.4 cm; Wt 156.8 kg
[2020-05-05] MEDS ORDERED: PHENERGAN25 M1 PO (01:14)
[2020-05-05 01:30] LABS: BASOPHILS 0.2 % (0-2); EOSINOPHILS 3.1 % (0-7); HEMATOCRIT 39.2 % (36.0-48.0); HEMOGLOBIN 13.6 g/dL (12-16); IMMATURE GRANULOCYTES 0.5 % (0-5); LYMPHOCYTES 32.2 % (15-50); MCHC 34.7 g/dL (31.0-37.0); MCV 80.7 fL (80.0-100.0); MEAN PLATELET VOLUME 10.4 fL (7.4-10.4); MONOCYTES 4.9 % (2-11); NEUTROPHILS 59.1 % (40-80); PLATELET COUNT 221 10x3/uL (130-400); RBC 4.86 10x6/uL (4.00-5.40); RDW 14.5 % (11.5-14.5); WBC 8.7 10x3/uL (4.8-10.8)
[2020-05-05 01:40] LABS: CALC OSMOLALITY 284 mosm/kg (275-300); CALCIUM 9.3 mg/dL (8.5-10.1); CARBON DIOXIDE 29.1 mmol/L (21.0-32.0); CHLORIDE - SERUM 102 mmol/L (98-107); CREATININE - SERUM 1.2 mg/dL (0.6-1.3); POTASSIUM - SERUM 3.6 mmol/L (3.5-5.1); SODIUM 138 mmol/L (136-145); UREA NITROGEN 17 mg/dL (7-18); eGFR NON AFRICAN AMERICAN 48 mL/min (90-120)
[2020-05-05 01:43] LABS: APTT 29.4 SECONDS (22.8-39.4); GLUCOSE 221 mg/dL (74-106); INR 0.92 (0.85-1.17); PROTIME 12.3 SECONDS (11.6-15.0)
[2020-05-05 01:54] LABS: ALBUMIN 3.2 g/dL (3.4-5.0); ALKALINE PHOSPHATASE 126 U/L (30-120); ALT (SGPT) 24 U/L (10-68); BILIRUBIN - TOTAL 0.34 mg/dL (0.2-1.3); C-REACTIVE PROTEIN 3.9 mg/dL (0.0-0.9); LIPASE 207 U/L (73-393); MAGNESIUM - SERUM 1.5 mg/dL (1.8-2.4); PRO BNP 42 pg/mL (0-125); PROTEIN - SERUM 7.3 g/dL (6.4-8.2); THYROID STIMULATING HORMONE 0.95 uIU/mL (0.36-3.74); TROPONIN-I < 0.017 ng/mL (0.000-0.060)
[2020-05-05 02:33] VITALS: BP 168/81
== END 2020-05-05 02:34 | disposition home or self-care (01) ==
LOC: D.ER 00:56
PROVIDERS: Family Medicine
DX: I11.0 Hypertensive heart disease with heart failure (principal); I50.9 Heart failure, unspecified; E11.9 Type 2 diabetes mellitus without complications; Z95.0 Presence of cardiac pacemaker; J44.9 Chronic obstructive pulmonary disease, unspecified; K21.9 Gastro-esophageal reflux disease without esophagitis; Z79.4 Long term (current) use of insulin; R07.89 Other chest pain; R06.02 Shortness of breath

== ENCOUNTER 2020-07-16 14:55 | Emergency (ER) | payer MEDICARE ==
[~2020-07-16] VITALS: Ht 171.4 cm; Wt 161.4 kg
[~2020-07-16 14:55] MED LIST changes: +PHENERGAN25 M1 PO
[2020-07-16 15:09] VITALS: Ht 171.4 cm; Wt 161.4 kg
[2020-07-16 15:43] LABS: BASOPHILS 0.1 % (0-2); EOSINOPHILS 3.6 % (0-7); HEMATOCRIT 38.7 % (36.0-48.0); HEMOGLOBIN 13.3 g/dL (12-16); IMMATURE GRANULOCYTES 0.6 % (0-5); LYMPHOCYTES 27.9 % (15-50); MCH 28.1 pg (26.0-34.0); MCHC 34.4 g/dL (31.0-37.0); MCV 81.8 fL (80.0-100.0); MONOCYTES 6.1 % (2-11); NEUTROPHILS 61.7 % (40-80); PLATELET COUNT 187 10x3/uL (130-400); RBC 4.73 10x6/uL (4.00-5.40); RDW 14.3 % (11.5-14.5); WBC 7.2 10x3/uL (4.8-10.8)
[2020-07-16 15:54] LABS: APTT 28.5 SECONDS (22.8-39.4); INR 0.93 (0.85-1.17); PROTIME 12.4 SECONDS (11.6-15.0)
[2020-07-16 16:05] LABS: CALC OSMOLALITY 284 mosm/kg (275-300); CALCIUM 9.9 mg/dL (8.5-10.1); CHLORIDE - SERUM 104 mmol/L (98-107); CREATININE - SERUM 1.1 mg/dL (0.6-1.3); GLUCOSE 178 mg/dL (74-106); POTASSIUM - SERUM 3.3 mmol/L (3.5-5.1); SODIUM 140 mmol/L (136-145); UREA NITROGEN 18 mg/dL (7-18); eGFR NON AFRICAN AMERICAN 53 mL/min (90-120)
[2020-07-16 16:21] LABS: ALBUMIN 3.3 g/dL (3.4-5.0); ALKALINE PHOSPHATASE 115 U/L (30-120); ALT (SGPT) 20 U/L (10-68); CKMB 0.4 U/L (0.0-3.6); CREATINE KINASE 88 UL (21-215); MAGNESIUM - SERUM 1.6 mg/dL (1.8-2.4); PROTEIN - SERUM 7.6 g/dL (6.4-8.2)
[2020-07-16 16:25] LABS: TROPONIN-I < 0.017 ng/mL (0.000-0.060)
[2020-07-16 16:31] LABS: BILIRUBIN NEGATIVE (NEGATIVE); KETONE NEGATIVE (NEGATIVE); NITRITE NEGATIVE (NEGATIVE); UROBILINOGEN NORMAL mg/dL (< 2)
[2020-07-16] MEDS ORDERED: TESSALON PERLE100 MG PO (18:34)
[2020-07-16] MEDS ORDERED: DOXYCYCLINE HY100 M2 PO (18:34)
[2020-07-16 19:17] VITALS: BP 132/78
== END 2020-07-16 19:17 | disposition home or self-care (01) ==
LOC: D.ER 14:55
PROVIDERS: Family Medicine
DX: J06.9 Acute upper respiratory infection, unspecified (principal); R10.9 Unspecified abdominal pain; J40 Bronchitis, not specified as acute or chronic; E11.22 Type 2 diabetes mellitus with diabetic chronic kidney disease; I12.9 Hypertensive chronic kidney disease with stage 1 through stage 4 chronic kidney disease, or unspecified chronic kidney disease; N18.9 Chronic kidney disease, unspecified; J44.9 Chronic obstructive pulmonary disease, unspecified; I50.9 Heart failure, unspecified; Z72.0 Tobacco use; E11.65 Type 2 diabetes mellitus with hyperglycemia; E87.6 Hypokalemia; J32.9 Chronic sinusitis, unspecified; Z20.828 Contact with and (suspected) exposure to other viral communicable diseases; Z79.4 Long term (current) use of insulin

== ENCOUNTER 2021-01-06 10:53 | Emergency (ER) | payer MEDICARE ==
[~2021-01-06] VITALS: Ht 171.4 cm; Wt 156.8 kg
[~2021-01-06 10:53] MED LIST changes: +DOXYCYCLINE HY100 M2 PO
[2021-01-06 10:58] VITALS: BP 107/42; Ht 171.4 cm; Wt 156.8 kg
[2021-01-06 14:39] LABS: BASOPHILS 0.3 % (0-2); EOSINOPHILS 7.2 % (0-7); HEMATOCRIT 36.7 % (36.0-48.0); HEMOGLOBIN 12.8 g/dL (12-16); IMMATURE GRANULOCYTES 0.4 % (0-5); LYMPHOCYTE ABS# 2.53 10x3/uL (1.18-3.74); LYMPHOCYTES 33.2 % (15-50); MCH 28.1 pg (26.0-34.0); MCHC 34.9 g/dL (31.0-37.0); MCV 80.7 fL (80.0-100.0); MONOCYTES 6.7 % (2-11); NEUTROPHIL ABS# 3.99 10x3/uL (1.56-6.13); NEUTROPHILS 52.2 % (40-80); RBC 4.55 10x6/uL (4.00-5.40); RDW 14.7 % (11.5-14.5); WBC 7.6 10x3/uL (4.8-10.8)
[2021-01-06 14:40] LABS: PLATELET COUNT 230 10x3/uL (130-400)
[2021-01-06 14:42] LABS: ANION GAP 8.4 mmol/L (8-16); CALCIUM 9.5 mg/dL (8.5-10.1); CARBON DIOXIDE 32.8 mmol/L (21.0-32.0); CREATININE - SERUM 0.9 mg/dL (0.6-1.3); POTASSIUM - SERUM 3.2 mmol/L (3.5-5.1)
[2021-01-06 14:46] LABS: ALBUMIN 3.2 g/dL (3.4-5.0); BILIRUBIN - TOTAL 0.23 mg/dL (0.2-1.3); PROTEIN - SERUM 7.4 g/dL (6.4-8.2)
== END 2021-01-06 15:16 | disposition home or self-care (01) ==
LOC: D.ER 10:53
PROVIDERS: Emergency Medicine
DX: G62.9 Polyneuropathy, unspecified (principal); E11.9 Type 2 diabetes mellitus without complications; I11.0 Hypertensive heart disease with heart failure; I50.9 Heart failure, unspecified; J44.9 Chronic obstructive pulmonary disease, unspecified; K21.9 Gastro-esophageal reflux disease without esophagitis; Z72.0 Tobacco use; Z79.4 Long term (current) use of insulin

== ENCOUNTER 2021-04-26 21:08 | Emergency (ER) | payer MEDICARE ==
[~2021-04-26] VITALS: Ht 171.4 cm; Wt 154.5 kg
[2021-04-26 21:12] VITALS: BP 120/62; Ht 171.4 cm; Wt 154.5 kg
[2021-04-26 22:05] LABS: HEMATOCRIT 39.1 % (36.0-48.0); HEMOGLOBIN 13.6 g/dL (12-16); LYMPHOCYTES 33.7 % (15-50); MCH 27.9 pg (26.0-34.0); MCHC 34.9 g/dL (31.0-37.0); MCV 80.1 fL (80.0-100.0); MEAN PLATELET VOLUME 8.5 fL (7.4-10.4); NEUTROPHILS 54.3 % (40-80); PLATELET COUNT 231 10x3/uL (130-400); RBC 4.87 10x6/uL (4.00-5.40); RDW 15.2 % (11.5-14.5); WBC 8.6 10x3/uL (4.8-10.8)
[2021-04-26 22:05] LABS: BILIRUBIN NEGATIVE (NEGATIVE); KETONE NEGATIVE mg/dL (< 1+); NITRITE NEGATIVE (NEGATIVE); PH 5.5 (5.0-8.0); UROBILINOGEN NORMAL mg/dL (< 2)
[2021-04-26 22:12] LABS: CALC OSMOLALITY 282 mosm/kg (275-300); CALCIUM 9.3 mg/dL (8.5-10.1); CARBON DIOXIDE 30.3 mmol/L (21.0-32.0); CHLORIDE - SERUM 101 mmol/L (98-107); GLUCOSE 128 mg/dL (74-106); POTASSIUM - SERUM 3.6 mmol/L (3.5-5.1); SODIUM 138 mmol/L (136-145); UREA NITROGEN 26 mg/dL (7-18); eGFR NON AFRICAN AMERICAN 59 mL/min (90-120)
[2021-04-26 22:21] LABS: ALBUMIN 3.3 g/dL (3.4-5.0); ALKALINE PHOSPHATASE 105 U/L (30-120); ALT (SGPT) 27 U/L (10-68); AMYLASE - SERUM 38 U/L (25-115); BILIRUBIN - TOTAL 0.31 mg/dL (0.2-1.3); LIPASE 75 U/L (73-393); PROTEIN - SERUM 7.7 g/dL (6.4-8.2)
[2021-04-26 22:24] LABS: TROPONIN-I < 0.017 ng/mL (0.000-0.060)
== END 2021-04-27 00:59 | disposition home or self-care (01) ==
LOC: D.ER 21:08
PROVIDERS: Emergency Medicine
DX: R10.9 Unspecified abdominal pain (principal); G89.29 Other chronic pain; E11.9 Type 2 diabetes mellitus without complications; I11.0 Hypertensive heart disease with heart failure; I50.9 Heart failure, unspecified; Z95.0 Presence of cardiac pacemaker; J44.9 Chronic obstructive pulmonary disease, unspecified; K21.9 Gastro-esophageal reflux disease without esophagitis; Z72.0 Tobacco use; Z79.4 Long term (current) use of insulin